=== PATIENT | male | born 1980 | race Caucasian/White ===

== ENCOUNTER → 2023-03-25 | Outpatient (CLI) | payer BC, SELFPAY ==
--- NOTE | 2023-03-25 08:56 | ECHOD_ITS ---
Reason For Study: Palpitations Procedure This was a 2D Doppler, Color Flow transthoracic echocardiogram. Exam performed in department. Left Ventricle Normal LV size. Left ventricular systolic function is normal. The estimated ejection fraction is 60 %. No evidence for diastolic dysfunction. No regional wall motion abnormalities noted. Right Ventricle Normal RV size. Normal systolic function. Atria Normal left atrium. Normal right atrium. Mitral Valve Normal mitral valve. Tricuspid Valve Normal tricuspid valve. Aortic Valve Normal aortic valve. Trisinus/trileaflet aortic valve. Pulmonic Valve Normal pulmonic valve. Great Vessels Normal aortic root. The pulmonary artery is normal size. Normal inferior vena cava. Pericardium/Pleural No pericardial effusion. MMode/2D Measurements & Calculations LVIDd: 5.0 cm IVSd: 0.93 cm Ao root diam: 3.4 cm LVIDs: 2.9 cm LVPWd: 0.90 cm LA dimension: 4.0 cm RVDd: 3.5 cm FS: 42.4 % LAV(MOD-bp): 54.9 ml LVAd ap4: 32.4 cm2 SV(MOD-sp4): 64.7 ml LAV(MOD-bp) Indexed: 23.5 ml/m2 LVLd ap4: 8.4 cm LAV(MOD-sp2): 47.1 ml EDV(MOD-sp4): 98.6 ml LAV(MOD-sp4): 51.5 ml EDV(sp4-el): 106.4 ml LVAs ap4: 16.9 cm2 LVLs ap4: 6.9 cm ESV(MOD-sp4): 34.0 ml ESV(sp4-el): 35.1 ml EF(MOD-sp4): 65.6 % EF(sp4-el): 67.0 % SV(sp4-el): 71.3 ml LA A4 area: 19.9 cm2 RA A4 area: 17.2 cm2 TAPSE: 2.0 cm Time Measurements MV dec time: 0.20 sec Doppler Measurements & Calculations MV E max nakul: 80.9 cm/sec Lat Peak E' Nakul: 16.7 cm/sec Med Peak E' Nakul: 11.6 cm/sec MV A max nakul: 73.9 cm/sec E/E' lat: 4.9 E/E' med: 7.0 MV E/A: 1.1 MV V2 max: 93.4 cm/sec MV P1/2t max nakul: 93.7 cm/sec Ao V2 max: 137.1 cm/sec MV max P.5 mmHg MV P1/2t: 60.0 msec Ao max P.5 mmHg MV V2 mean: 54.2 cm/sec MV dec slope: 457.5 cm/sec2 Ao V2 mean: 96.9 cm/sec MV mean P.3 mmHg Ao mean P.2 mmHg MV V2 VTI: 22.1 cm MVA(P1/2t): 3.7 cm2 Ao V2 VTI: 29.1 cm LV V1 max: 94.6 cm/sec MR max nakul: 293.2 cm/sec PA V2 max: 114.6 cm/sec LV V1 max P.6 mmHg MR max P.4 mmHg PA V2 mean: 82.6 cm/sec ECHO/Echo Complete Interpretation Summary Normal LV size. Left ventricular systolic function is normal. The estimated ejection fraction is 60 %. No evidence for diastolic dysfunction. Ordering Physician: Lou Kulkarni Referring Physician: Lou Kulkarni Performed By: Jaquan Curtis RCS
== END | disposition home or self-care (01) ==
PROVIDERS: PCP Nurse Practitioner Family; Referring Provider Nurse Practitioner Family; Visit Provider Nurse Practitioner Family
DX: R00.2 Palpitations (principal); I49.3 Ventricular premature depolarization; R00.0 Tachycardia, unspecified; E66.9 Obesity, unspecified; Z72.0 Tobacco use; Z76.89 Persons encountering health services in other specified circumstances
CPT/HCPCS: 93225; 93226; 93306